=== PATIENT | female | born 1990 | race African-American/Black ===

== ENCOUNTER 2018-05-10 23:17 | Emergency (ER) | payer OTHER ==
[~2018-05-10] VITALS: Ht 162.6 cm; Wt 59.0 kg
[2018-05-10 23:39] VITALS: BP 110/69
[2018-05-10] MEDS ORDERED: NOHOMEMEDICATIONS (23:50)
== END 2018-05-11 00:10 | disposition home or self-care (01) ==
LOC: M.ERS 23:17 → EDSEX 23:17 → M.ERS 05-11 00:10
DX: T19.2XXA Foreign body in vulva and vagina, initial encounter (principal); X58.XXXA Exposure to other specified factors, initial encounter; Y93.89 Activity, other specified; Y92.89 Other specified places as the place of occurrence of the external cause; Y99.8 Other external cause status